=== PATIENT | female | born 1965 | race Caucasian/White ===

== ENCOUNTER 2025-04-10 07:59 | Outpatient (CLI) | payer BC, SELFPAY ==
--- NOTE | 2025-04-10 08:00 | ECG_ITS ---
Test Date: 2025-04-10 08:13:53 Measurements Intervals [place] Rate: 61 P: 59 [place]: 178 QRS: 74 QRSD: 77 T: 67 QT: 424 QTc: 428 Interpretive Statements SINUS RHYTHM MINIMAL Q WAVES- INF/LAT LEADS BASELINE ARTIFACT- I, III, AVR, AVL BORDERLINE ECG No previous ECG available for comparison Electronically Signed On 04-10-2025 08:28:44 [employer]CHNICIAN by Reynaldo Branch D.O.
[2025-04-10 08:45] LABS: Anion Gap 4 mmol/L (4-12); Blood Urea Nitrogen 15 mg/dL (7-17); Calcium 9.1 mg/dL (8.4-10.2); Carbon Dioxide 25 mmol/L (22-30); Chloride 107 mmol/L (98-107); Estimated Glomerular Filt Rate 60; Glucose 96 mg/dL (65-110); Potassium 4.3 mmol/L (3.4-5.0); Sodium 136 mmol/L (137-145)
== END 2025-04-10 08:00 | disposition home or self-care (01) ==
LOC: ANHSURGERY 08:02
PROVIDERS: Anesthesiology; PCP Family Medicine; Visit Provider Orthopaedic Surgery
DX: Z01.818 Encounter for other preprocedural examination (principal); I10 Essential (primary) hypertension; E11.9 Type 2 diabetes mellitus without complications
CPT/HCPCS: 36415; 80048; 93005

== ENCOUNTER 2025-04-11 01:52 | Day surgery (SDC) | payer BC, SELFPAY ==
[2025-04-09 08:53] VITALS: BMI 22.3
--- NOTE | 2025-04-09 09:02 | SUR.PREOP ---
[facility] has started construction of its new state of the art ER which will open Spring 2026. With this, we anticipate parking may be a challenge for some our surgical patients and families. Parking spaces are limited but are available for all Surgical, obstetrics, and ER patients sharing this lot. If you arrive and find you are having a hard time finding a parking space, please note that we understand the challenges, please drive around the hospital and park near Hospital Entrance 1. When you enter this entrance, you can ask a volunteer to direct or take you back to the surgical waiting area to check in. We appreciate everyone?s understanding of these expected challenges while we build for your future. Report to the Outpatient Waiting Room, entrance under the green pavilion located off [address], at time 10:00a.m. on date 04/11/25. Planned Procedure Time: 12:00p.m..? Time changes happen often and if your time is changed the preop area will call you the afternoon before. - You and your visitor will be asked to self-screen and do not enter if you have any COVID symptoms. Please call surgeon if you need to reschedule. - A mask is optional within the hospital at this time. Patients may have clear liquids (water, carbonated beverages, clear teas, apple juice) until 3 hours prior to surgery with a maximum of 20 ounces. - No food from midnight until time of surgery and no smoking, or chewing tobacco (or any form of nicotine). No chewing gum, candy or mints. Take only the following medications with a SIP of water on the morning of surgery: None DO NOT STOP ANY OF YOUR OTHER PRESCRIPTION MEDICATIONS PRIOR TO SURGERY EXCEPT THE FOLLOWING Hold all vitamins and supplements for 3 days per anesthesiologist. Medications to discontinue per physician: None Date to take last dose: NONE Please no make-up, nail eritrean, hairspray, perfume, deodorant, or body powder the day of surgery.? No jewelry (including any body piercings) or valuables the day of surgery, leave them at home.? Please take a shower or bath the night before, or the morning of, surgery with an antibacterial soap.? Wear comfortable, loose fitting clothing.? Children are encouraged to wear pajamas. - Jewelry must be removed prior to entering the operating room.? Rings and piercings that are not removed may be cut off. - The hospital will not accept responsibility for valuables.? - Please leave all valuables, including medications, at home the day of surgery. If you are going home after surgery, a licensed armored car guard and driver must drive you home.? - NO public transportation without another adult if you receive anesthesia. - We recommend that an adult stay with you for 24 hours following discharge. - We also recommend that you do not drive, make important decision, drink alcoholic beverages, or take any drugs that were not prescribed by your health care provider for at least 24 hours after your discharge time. For Pediatric surgeries, we recommend two adults accompany the child home. Follow any additional instructions given to you from your surgeon. Telephone instructions given to Vicki Denise and asked if any additional questions and then verbalized understanding. Patient advised to call surgeon office or pre surgery nurse liaison [phone] if any additional questions.
[2025-04-11] VITALS (9 sets, daily range): BP systolic 107–127; BP diastolic 57–72; PULSE 54–83; RESP 11–18; TEMP 36.4–36.7; O2SAT 98–100; BMI 22.3
--- OUTSIDE RECORDS SUMMARY | 2025-04-11 01:56 | XMS_ITS | Clinical Summary ---
Author Organization [facility] [address] Address [address] [place] [address] Care Team Providers Care Community Service Representative Name Role Phone Dionte Llamas MD Primary Care Provider + Allergies Active Allergy Reactions Criticality Noted Date Comments Acetaminophen Vomiting Low 08/25/2020 Medications buPROPion XL (WELLBUTRIN XL) 300 mg 24 hr tablet Take 300 mg by mouth daily 08/06/[address] (CYMBALTA) 20 mg capsule TAKE 2 CAPSULES BY MOUTH ONCE DAILY 06/23/19 21 Active estradioL (ESTRACE) 1 mg tablet Take 1 mg by mouth daily 06/06/19 21 Active ibuprofen (ADVIL,MOTRIN) 600 mg tablet TAKE 1 TABLET BY MOUTH THREE TIMES DAILY FOR 10 DAYS 06/23/19 21 Active metFORMIN (GLUCOPHAGE) 500 mg tablet Take 500 mg by mouth 06/20/19 21 Active ondansetron ODT (ZOFRAN-ODT) 4 mg disintegrating tablet DISSOLVE 1 TAB SUBLINGUALLY EVERY 12 HOURS NEEDED FOR NAUSEA AND VOMITING 06/09/19 21 Active phentermine 37.5 mg capsule 0 05/27/19 21 Active topiramate (TOPAMAX) 25 mg tablet Take 25 mg by mouth 2 (two) times a day 07/08/19 21 Active Active Problems Problem Noted Date Diagnosed Date Ear pain, left 08/26/2020 Surgical History Surgery Date Site/Laterality Comments APPENDECTOMY HYSTERECTOMY SKIN CANCER EXCISION Medical History Medical History Date Comments Allergic rhinitis Skin cancer Depression Diabetes Family History Medical History Relation Name Comments Heart disease Mother Cancer Sister Relation Name Status Comments Mother Sister Social History Tobacco Use Types Packs/Day Years Used Date Smoking Tobacco: Never Smokeless Tobacco: Never Personal Safety Answer Date Recorded Getting School Help Needed Not on file 07/15 Comments Unknown Sex and Gender Information Value Date Recorded Sex Assigned at Not on file Legal Sex Female 3:54 PM CDT Gender Identity Not on file Sexual Orientation Not on file Last Filed Vital Signs Vital Sign Reading Time Taken Comments Blood Pressure - - Pulse - - Temperature 36.4 C (97.6 F) 08/25/2020 2:21 PM CDT Respiratory Rate - - Oxygen Saturation - - Inhaled Oxygen Concentration - - Weight 61.2 kg (135 lb) 08/25/2020 2:21 PM CDT Height 162.6 cm (5' 4) 08/25/2020 2:21 PM CDT Body Mass Index 23.17 08/25/2020 2:21 PM CDT Plan of Treatment Not on file Insurance Care Teams Community Service Representative Relationship Specialty Start Date End Date Dionte Llamas MD PCP - General Internal Medicine 08/20/20
--- OUTSIDE RECORDS SUMMARY | 2025-04-11 01:56 | XMS_ITS | Clinical Summary ---
Author Organization MYNOR PINEDA MD Address [address] [facility], [address] [address] Phone Care Team Providers Care Nurse Transitional Name Role Phone Mynor Pineda MD Primary Care Provider [phone] Allergies No known active allergies Medications buPROPion SR (WELLBUTRIN SR) 150 MG TABLET SR 12 HRIndications:Bipol ar affective disorder, currently depressed, moderate Take 1 Tab by mouth 2 times daily. 60 Tab 2 6 Active metFORMIN (GLUCOPHAGE) 500 MG Tablet Take 1 Tab by mouth 2 times daily (with meals). 180 Tab 3 6 Active simvastatin (ZOCOR) 20 MG TabletIndications:H yperlipidemia, unspecified hyperlipidemia type Take 1 Tab by mouth nightly. 90 Tab 3 6 Active Escitalopram Oxalate 5 MG Tablet 12/23/19 1 6 Active traZODone (DESYREL) 50 MG Tablet TAKE 1 TABLET BY MOUTH EVERY DAY AT NIGHT 0 6 Active Active Problems Problem Noted Date Diagnosed Date Hyperlipidemia 12/25/2015 Hypertension, benign 10/16/2015 Pre-op examination 08/17/2015 Bunion of great toe 08/17/2015 Type 2 diabetes mellitus without complication Basal cell carcinoma of eyelid 04/28/2015 Other specific disorder of sleep of nonorganic o rigin Contact dermatitis and eczema Hereditary and idiopathic peripheral neuropathy Bipolar disorder Resolved Problems Problem Noted Date Diagnosed Date Resolved Date Type 2 diabetes mellitus 03/2016 Immunizations Immunization Administration Dates Next Due Influenza Vaccine greater than 3 yrs 04/11/2013 Pneumococcal Vaccine Adult - 23 Valent 3 Family History Medical History Relation Name Comments Heart Attack Father Heart Disease Mother Relation Name Status Comments Father Mother Alive Social History Tobacco Use Types Packs/Day Years Used Date Smoking Tobacco: Never Alcohol Use Standard Drinks/Week Comments Not Asked 0 (1 standard drink = 0.6 oz pur e alcohol) Comments No Sex and Gender Information Value Date Recorded Sex Assigned at Not on file 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 Gender Identity Not on file Sexual Orientation Not on file Last Filed Vital Signs Vital Sign Reading Time Taken Comments Blood Pressure 132/64 12/25/2015 10:51 AM CDT Pulse 83 12/25/2015 10:51 AM CDT Temperature 36.7 C (98 F) 12/25/2015 10:51 AM CDT Respiratory Rate 16 12/25/2015 10:5 1 AM CDT Oxygen Saturation 98% 12/25/2015 10: 51 AM CDT Inhaled Oxygen Concentration - - Weight 67.5 kg (148 lb 14.4 oz) 016 10:51 AM CDT Height 162.6 cm (5' 4) 12/25/2015 10:5 1 AM CDT Body Mass Index 25.56 12/25/2015 10:51 AM CDT Plan of Treatment Health Maintenance Due Date Last Done Comments Diabetes: Eye Exam 1965 Diabetes: Foot Exam 1965 Hepatitis C Virus (HCV) Screening 1965 TdaP Immunization 1965 Hepatitis B Immunization (1 of 3 - 19+ 3-dose series) 09/03/1986 Cologuard 09/03/2012 Colonoscopy 09/03/2012 Colorectal Cancer Screening 09/03/2012 Immunochemical Fecal Occult Blood 09/03/2012 Pneumococcal Immunization (5 0+ years) (2 of 2 - PCV) 06/01/2013 06/01/2012 Diabetes: Nephropathy Screening 06/12/2016 06/12/2015 Diabetes: Hemoglobin A1c 06/26/2016 016, 06/12/2015 Zoster Immunization (1 of 2) 09/03/2017 Influenza Immunization (#1) 2024 04/11/2013 SARS-COV-2 Immunization ( - season) 2024 02/23/2021, 07/09/2020, 06/11/2020 Respiratory Syncytial Virus (RSV) Immunization (Adult) (1 - 1-dose 75+ series) 09/03/2042 Pneumococcal Immunization Combined Discontinued 06/01/2012 Human Papillomavirus (HPV) Immunization Aged Out No longer eligible based on patient's age to complete this topic Meningococcal Immunization (ACWY) Aged Out No longer eligible based on patient's age to complete this topic Rotavirus Immunization Aged Out No lo nger eligible based on patient's age to complete this topic Procedures Procedure Name Priority Date/Time Associated Diagnosis Comments HEMOGLOBIN A1C W/ ESTIMATED GLUCOSE Routine 12/25/2015 11:30 AM CDT Type 2 diabetes mellitus without complication, without long-term current use of insulin CMP (COMPREHENSIVE METABOLIC PANEL) Routine 06/12/2015 11:05 AM BANK CREDIT CARD COLLECTION CLERK Type 2 diabetes mellitus without complication (HCC) from Last 3 Months or Most Recently Relevant to Health Maintenance Results * HEMOGLOBIN A1C W/ ESTIMATED GLUCOSE (12/25/2015 11:30 AM CDT) HGB-A1C 5.3 4.0 - 6.0 % 12/25/2015 3:37 PM CDT [facility] Blood specimen (specimen) Venipuncture / Unknown 12/25/2015 11:30 AM CDT 12/25/2015 11:[address] [facility] - 12/25/2015 3:37 PM CDT Per ADA recommendations, HbA1c <7% is the goal for glycemic control, >8% suggests additional action needed. ([employer] [place] HbA1c method) This assay measures any hemoglobin variants that are glycated at the beta-chain N-terminus and have epitopes identical to that of HbA1c. Hemoglobins D, C, E and S do not interfere with this method. Samples containing >10% Hemoglobin F will yield lower than expected results. The effect of other variant hemoglobins has not been assessed. us Mynor Pineda MD CHEMISTRY ORDERABLES Final Result [id number] [place] [address] * CMP (COMPREHENSIVE METABOLIC PANEL) (06/12/2015 11:05 AM BANK CREDIT CARD COLLECTION CLERK) SODIUM 134 133 - 145 mmol/L 06/12/2015 2:46 PM [facility] POTASSIUM 4.5 3.5 - 5.1 mmol/L 06/12/2015 2:46 PM [facility] CHLORIDE 99 96 - 108 mmol/L 06/12/2015 2:46 PM [facility] CO2, VENOUS 27 21 - 32 mmol/L 06/12/2015 2:46 PM [facility] ANION GAP 12.5 10.0 - 20.0 mmol/L 06/12/2015 2:46 PM [facility] GLUCOSE 80 70 - 105 mg/dL 06/12/2015 2:46 PM [facility] BUN 11 6 - 19 mg/dL 06/12/2015 2:46 PM [facility] CREATININE, BLOOD 0.70 0.40 - 1.10 mg/dL 06/12/2015 2:46 PM [facility] TOTAL PROTEIN 7.7 6.2 - 8.4 g/dL 06/12/2015 2:46 PM [facility] ALBUMIN 4.0 3.5 - 5.0 g/dL 06/12/2015 2:46 PM [facility] CALCIUM 9.2 8.4 - 10.2 mg/dL 06/12/2015 2:46 PM [facility] T BILI 0.4 0.0 - 1.0 mg/dL 06/12/2015 2:46 PM [facility] SGOT (AST) 19 0 - 37 U/L 06/12/2015 2:46 PM [facility] SGPT (ALT) 35 12 - 45 U/L 06/12/2015 2:46 PM [facility] ALKALINE PHOSPHATASE 90 39 - 117 U/L 06/12/2015 2:46 PM [facility] GFR, EST. NONAFRICAN >60 06/12/2015 2:46 PM [facility] Comment: Reference interval for MDRD GFR: GFR >=60: Satisfactory kidney function GFR <60: Chronic kidney disease GFR <15: Kidney failure Estimated GFR may be less reliable in patients >70yr, women, patients with serious comorbid conditions, or patients with extremes of body size, muscle mass, or nutritional status. Revised 07/25/07 (National Kidney Disease Education Program) GFR, EST. >60 >=60 06/12/2015 2:46 PM BANK CREDIT CARD COLLECTION CLERK [facility] Comment: Reference interval for MDRD GFR: GFR >=60: Satisfactory kidney function GFR <60: Chronic kidney disease GFR <15: Kidney failure Estimated GFR may be less reliable in patients >70yr, women, patients with serious comorbid conditions, or patients with extremes of body size, muscle mass, or nutritional status. Revised 07/25/07 (National Kidney Disease Education Program) Blood specimen (specimen) Venipuncture / Unknown 06/12/2015 11:05 AM BANK CREDIT CARD COLLECTION CLERK 06/12/2015 11:27 AM BANK CREDIT CARD COLLECTION CLERK us Mynor Pineda MD CHEMISTRY ORDERABLES Final Result [facility] [address] [place] [address] from Last 3 Months or Most Recently Relevant to Health Maintenance Insurance [facility] Care Teams Nurse Transitional Relationship Specialty Start Date End Date Mynor Pineda MD [address] [place] [address] [place] [address] PCP - General Family Medicine 09/21/14
--- NOTE | 2025-04-11 10:41 | WPDHPUPDATE1 ---
History and Physical Update Update Date/Time: 04/11/25 10:41 History and Physical has been reviewed, including an updated exam of the patient. There are NO changes in the patient's condition. Risks, benefits, and alternatives have been discussed and questions answered. Patient agrees to proceed with procedure.
[2025-04-11] MEDS: LACTATED RINGERS 1,000 ML 30 ML IV CONT ×2 (11:00→13:02)
[2025-04-11] MEDS: CELECOXIB 200 MG CAPSULE PO (11:15)
--- NOTE | 2025-04-11 11:35 | P.PNAN_ITS ---
Anes - Initial Pre Proc Eval Procedure: Operation Date: 04/11/25 12:00 Proposed Procedures p Right Knee Arthroscopy - Tadeo Ramos MD Date/Time: 04/11/25 11:35 Surgeon: Tadeo Ramos MD Pre Op Diagnosis: Rt Knee Medial Meniscus Tear Patient Data Age: 59 Gender: F Height: 1.63 m Weight: 58.967 kg Allergies Allergy/AdvReac Type Severity Reaction Status Date / Time acetaminophen AdvReac Severe Vomiting Verified 04/09/25 08:50 Home Medications ?Medication ?Instructions ?Recorded ?Confirmed ?Type atorvastatin 20 mg tablet (Lipitor) 20 mg PO DAILY 01/2304/09/25 History estradiol 1 mg tablet 1 mg PO DAILY 04/08/2504/09 History lisinopril 10 mg tablet 10 mg PO DAILY 04/08/2503/31 History semaglutide 1 mg/dose (4 mg/3 mL) 1 mg subcut WEEKLY 1 06/09/24 04/09/25 History subcutaneous pen injector (Ozempic) Laboratory Tests 04/11/25 11:06 POC Capillary Glucose 90 mg/dl (65-105) Patient hx anesthesia problems: none Family hx anesthesia problems: none Results Review: All pre-operative results and documents have been reviewed as part of the pre- operative evaluation. [facility] Past Medical History Medical History (Updated 04/11/25 @ 11:36 by Toni Do DO) Diabetes type 2, controlled Hyperlipidemia Hypertension Social History Social History Smoking status: Never smoker Substance use type: does not use Living arrangements: with family Gender identity (if verbalized by the patient): Female Spiritual care concerns: No Anes - Eval Final PreProcedure Day of Procedure 04/11/25 11:35 Patient weight: normal Heart: regular rate and rhythm Lungs: clear to auscultation Airway: Mallampati scale class II Neurological: alert and oriented Last oral intake: >/= 8 hours ASA classification: III Emergent: no Anesthetic plan: proceed Anesthesia type and monitoring: general LMA and standard monitoring Results Review: All pre-operative results and documents have been reviewed as part of the pre- operative evaluation. Informed Consent: The patient's anesthetic plan and its attendant risks and benefits were discussed with the patient/family/POA. Questions were solicited and answers provided to the satisfaction of the patient/family/POA.
[2025-04-11] MEDS: ceFAZolin 2 GM in SODIUM CHLORIDE 0.9% IV 50 ML 100 ML IVPB (11:59)
--- NOTE | 2025-04-11 13:07 | W.PM.PROC2 ---
Procedure Note - Detailed Date of Procedure 04/11/25 Pre-op Diagnosis Rt Knee Medial Meniscus Tear Post-op Diagnosis Same Procedure Performed RIGHT KNEE SCOPE WITH ABRASION ARTHROPLASTY/MICROFRACTURE, PARTIAL MEDIAL MENISCECTOMY, MAJOR SYNOVECTOMY Surgeon Tadeo Ramos MD Anesthesia General Description of Procedure PATIENT WAS TAKEN TO THE OR. RIGHT LEG WAS PREPPED AND DRAPED STERILE. TROCARS WERE PLACED IN THE USUAL FASHION. CAMERA WAS INTRODUCED. THERE WAS CHONDROMALACIA TO THE PATELLA FEMORAL JOINT. THERE WAS A LOT OF SYNOVITIS IN ALL COMPARTMENTS. THE MEDIAL COMPARTMENT SHOWED CHONDROMALACIA TO THE MEDIAL FEMORAL CONDYLE. THERE WAS A FULL THICKNESS DEFECT TO THE MAIN WEIGHT BEARING SURFACE. CHONDROPLASTY WAS PREFORMED. NEXT, LAURENCE PICKS WERE USED TO PREFORM A MICROFRACTURE. THERE WAS GOOD BLEEDING BONE FROM ALL SIGHTS OF MICROFRACTURE. THERE WAS A COMPLEX MEDIAL MENISCUS TEAR. THE TEAR WAS RESECTED WITH A BITER AND A SHAVER DOWN TO A SMOOTH BASE. THE ACL WAS INTACT. THE LATERAL MENISCUS WAS NOT TORN. THE LATERAL COMPARTMENT HAD MINIMAL CHONDROMALACIA. A SYNOVECTOMY WAS PREFORMED. THE PATELLO FEMORAL JOINT UNDERWENT CHONDROPLASTY. THERE WAS GRADE 3 CHONDROMALACIA IN PART OF THE PATELLA. SYNOVECTOMY WAS PREFORMED IN THE SUPERIOR MEDIAL COMPARTMENT. THE WOUNDS WERE APPROXIMATED WITH 4.0 NYLON. STERILE DRESSING WAS APPLIED. PATIENT WAS EXTUBATED. Estimated Blood Loss 5 Complications No immediate complications Condition Stable Disposition PACU
[2025-04-11] MEDS: fentaNYL CITRATE INJ (*CRX) 100 MCG/2 ML VIAL 25 MCG IV PUSH ×2 (13:33→13:37)
[2025-04-11] MEDS: oxyCODONE HCL (*CRX) 5 MG TAB IR PO (14:44)
--- NOTE | 2025-04-11 15:21 | SUR.PHASEII ---
Spoke to Dr. Ramos regarding prescription that was sent to pharmacy for patient. Patient unable to take d/t allergy to tylenol. Dr. Ramos stated he would call in oxycodone for patient.
== END 2025-04-11 15:45 | disposition home or self-care (01) ==
PROVIDERS: PCP Family Medicine; Visit Provider Orthopaedic Surgery
PROC: (CPT 29870; principal; 2025-04-11 12:00)
DX: S83.231A Complex tear of medial meniscus, current injury, right knee, initial encounter (principal); M65.861 Other synovitis and tenosynovitis, right lower leg; M94.261 Chondromalacia, right knee; X50.0XXA Overexertion from strenuous movement or load, initial encounter; E11.9 Type 2 diabetes mellitus without complications
CPT/HCPCS: 29881; 29879; 29876; 82948; J0690; A9270; J1010; J1100; J2405; J2704; J3010; J7120